=== PATIENT | female | born 1945 | race African-American/Black ===

== ENCOUNTER 2017-05-14 20:17 | Inpatient (IN) | payer MEDICARE, MEDICAID ==
[~2017-05-14] VITALS: Ht 167.6 cm; Wt 109.8 kg
[~2017-05-14 20:17] MED LIST: ALBU6.7H3; AMLO10TA80 PO; ASPI81TA35 PO; CITA10TA9 PO; DOCU-150 PO; FLUT12AE7 PO; GABA-529 PO; LOT10 PO; NIFE90TA47 PO; NITR0.4T SL; OMEP20CA10 PO; TRAM50TA94 PO
[2017-05-14] MEDS ORDERED: MORPHINE SULFATE 4 MG/ML CPJ (NOT FOR IM USE) IV STA (20:53)
[2017-05-14] MEDS ORDERED: ONDANSETRON HCL 4MG/2ML VIAL IV STA (20:53)
[2017-05-14] MEDS ORDERED: SODIUM CHLORIDE 0.9% 500 ML IV ONE (20:54)
[2017-05-14 21:37] LABS: BASOPHILS % 0.8 % (0.0-2.0); EOSINOPHILS % 0.2 % (0.0-5.0); HEMATOCRIT. 41.2 % (36.0-48.0); HEMOGLOBIN. 13.1 g/dL (12.0-16.0); LYMPHOCYTES % 17.5 % (20.0-50.0); MEAN CORPUSCULAR HEMOGLOBIN 23.1 pg (28.0-32.0); MEAN CORPUSCULAR VOLUME 72.5 fL (81.0-99.0); MEAN PLATELET VOLUME 8.3 fl (7.4-10.4); MONOCYTES % 8.3 % (2.0-8.0); NEUTROPHILS % 73.2 % (40.0-76.0); PLATELET 313 x1000/uL (130-400); RED BLOOD CELL COUNT 5.69 mill/uL (4.2-5.4); RED CELL DISTRIBUTION WIDTH 15.9 % (11.6-14.6)
[2017-05-14 21:39] LABS: PROTHROMBIN TIME 10.4 sec
[2017-05-14 21:49] LABS: CARBON DIOXIDE 26 mEq/L (21-32); CHLORIDE 106 mEq/L (98-107); TROPONIN I 0.02 ng/mL (0.00-0.04)
[2017-05-14 22:35] LABS: CLARITY URINE CLEAR (CLEAR); COLOR URINE YELLOW (YELLOW); KETONES URINE NEGATIVE (NEGATIVE); LEUKOCYTE ESTERASE URINE NEGATIVE (NEGATIVE); NITRITE URINE NEGATIVE (NEGATIVE); OCCULT BLOOD URINE NEGATIVE (NEGATIVE); PH URINE 6.5 (4.5-8.0); PROTEIN URINE TRACE (NEGATIVE); SPECIFIC GRAVITY URINE 1.015 (1.005-1.030)
[2017-05-15] MEDS ORDERED: AMLODIPINE 5MG TABLET PO NR (05:30)
[2017-05-15] MEDS ORDERED: MORPHINE SULFATE 4 MG/ML CPJ (NOT FOR IM USE) IV NR (05:30)
[2017-05-15] MEDS ORDERED: ACETAMINOPHEN 325MG TABLET PO PRN (08:00)
[2017-05-15] MEDS ORDERED: CLONIDINE 0.1MG TABLET PO PRN (08:00)
[2017-05-15] MEDS ORDERED: ENOXAPARIN 40MG/0.4ML SYR SUBCUT SCH (08:00)
[2017-05-15] MEDS ORDERED: HYDROCODONE/ACETAMINOPHEN 5/325MG TABLET PO PRN (08:00)
[2017-05-15] MEDS ORDERED: ONDANSETRON HCL 4MG/2ML VIAL IV PRN (08:00)
[2017-05-15] MEDS ORDERED: DOCUSATE SODIUM 100MG CAPSULE PO PRN (08:00)
[2017-05-15] MEDS ORDERED: ACETAMINOPHEN 650MG/20.3ML UDC GT PRN (08:00)
[2017-05-15] MEDS ORDERED: NA PHOS,M-B/NA PHOS,DI-BA ENEMA 118ML PR PRN (08:00)
[2017-05-15] MEDS ORDERED: IPRATROPIUM/ALBUTEROL 0.5-3(2.5)MG/3ML NEB INH PRN (08:00)
[2017-05-15] MEDS ORDERED: ACETAMINOPHEN 650MG SUPP PR PRN (08:00)
[2017-05-15] MEDS ORDERED: MAGNESIUM/ALUMINUM HYDROXIDE/SIMETHICONE 30ML UDC PO PRN (08:00)
[2017-05-15] MEDS ORDERED: DIPHENHYDRAMINE 50MG/ML VIAL IV PRN (08:00)
[2017-05-15] MEDS ORDERED: NICOTINE 14MG PATCH TD NR (08:45)
[2017-05-15] MEDS ORDERED: ENOXAPARIN 30MG/0.3ML SYR SUBCUT SCH (09:00)
[2017-05-15] MEDS ORDERED: IOHEXOL-300 100 ML BOTTLE ONE (10:48)
[2017-05-15] MEDS ORDERED: SODIUM CHLORIDE 0.9% 10ML VIAL ONE (10:48)
[2017-05-15 11:32] LABS: BASOPHILS % 0.7 % (0.0-2.0); EOSINOPHILS % 1.6 % (0.0-5.0); HEMATOCRIT. 37.8 % (36.0-48.0); HEMOGLOBIN. 11.9 g/dL (12.0-16.0); MEAN CORPUSCULAR HEMOGLOBIN 23.2 pg (28.0-32.0); MEAN CORPUSCULAR VOLUME 73.7 fL (81.0-99.0); MONOCYTES % 9.7 % (2.0-8.0); PLATELET 264 x1000/uL (130-400); RED BLOOD CELL COUNT 5.13 mill/uL (4.2-5.4); RED CELL DISTRIBUTION WIDTH 15.7 % (11.6-14.6)
[2017-05-15 11:54] LABS: CARBON DIOXIDE 28 mEq/L (21-32); CHLORIDE 109 mEq/L (98-107)
[2017-05-15] MEDS: SODIUM CHLORIDE 0.9% INJ 3ML FLUSH IVF SCH ×2 (13:17→21:05)
[2017-05-15 15:52] LABS: CLARITY URINE CLEAR (CLEAR); COLOR URINE YELLOW (YELLOW); KETONES URINE NEGATIVE (NEGATIVE); LEUKOCYTE ESTERASE URINE NEGATIVE (NEGATIVE); NITRITE URINE POSITIVE (NEGATIVE); OCCULT BLOOD URINE TRACE (NEGATIVE); PH URINE 6.5 (4.5-8.0); PROTEIN URINE TRACE (NEGATIVE)
[2017-05-15] MEDS ORDERED: POTASSIUM CHLORIDE 20MEQ TABLET SR PO NR (16:02)
[2017-05-15 16:14] LABS: *AMPHETAMINES SCREEN URINE NEGATIVE (NEGATIVE); *BARBITURATES SCREEN URINE NEGATIVE (NEGATIVE); *BENZODIAZEPINES SCREEN URINE NEGATIVE (NEGATIVE); *COCAINE SCREEN URINE NEGATIVE (NEGATIVE); CANNABINOID URINE SCREEN NEGATIVE (NEGATIVE); METHADONE URINE SCREEN NEGATIVE (NEGATIVE); OPIATES URINE SCREEN PRESUMTIVE POSITIVE (NEGATIVE); PHENCYCLIDINE URINE SCREEN NEGATIVE (NEGATIVE)
[2017-05-15] MEDS ORDERED: OXYB5TAB11 PO (16:46)
[2017-05-15] MEDS ORDERED: TIOT18CA3 IH (16:46)
[2017-05-15] MEDS ORDERED: FERR-63 PO (16:46)
[2017-05-15] MEDS ORDERED: ATOR10TA69 PO (16:46)
[2017-05-15 17:03] LABS: T4 FREE 1.36 ng/dL (0.76-1.46); TROPONIN I 0.03 ng/mL (0.00-0.04)
[2017-05-15] MEDS: ENOXAPARIN 120MG/0.8ML SYR SUBCUT SCH (21:06)
[2017-05-16 01:59] LABS: CREATINE KINASE 220 IU/L (26-192); CREATINE KINASE MB FRACTION 2.5 ng/mL (0.5-3.6); TROPONIN I < 0.02 ng/mL (0.00-0.04)
[2017-05-16] MEDS: SODIUM CHLORIDE 0.9% INJ 3ML FLUSH IVF SCH ×2 (06:36→13:21)
[2017-05-16 06:53] LABS: BASOPHILS % 0.8 % (0.0-2.0); EOSINOPHILS % 3.9 % (0.0-5.0); HEMATOCRIT. 38.8 % (36.0-48.0); HEMOGLOBIN. 12.2 g/dL (12.0-16.0); MEAN CORPUSCULAR HEMOGLOBIN 23.1 pg (28.0-32.0); MEAN CORPUSCULAR VOLUME 73.3 fL (81.0-99.0); MEAN PLATELET VOLUME 8.2 fl (7.4-10.4); MONOCYTES % 8.7 % (2.0-8.0); NEUTROPHILS % 56.6 % (40.0-76.0); PLATELET 270 x1000/uL (130-400); RED BLOOD CELL COUNT 5.29 mill/uL (4.2-5.4)
[2017-05-16 07:14] LABS: CHLORIDE 107 mEq/L (98-107)
[2017-05-16 07:45] LABS: CARBON DIOXIDE 26 mEq/L (21-32); HDL CHOLESTEROL 45 mg/dL (40-59); LDL CHOLESTEROL 47 mg/dL (5-100)
[2017-05-16] MEDS: NICOTINE 14MG PATCH TD SCH (08:37)
[2017-05-16] MEDS: ENOXAPARIN 120MG/0.8ML SYR SUBCUT SCH ×2 (08:38→20:53)
[2017-05-16] MEDS: GUAIFENESIN 200MG/10ML SUGAR FREE UDC PO PRN ×2 (14:06→19:12)
[2017-05-16] MEDS ORDERED: REGADENOSON 0.4 MG/5 ML IV ONE (16:15)
[2017-05-17] MEDS: SODIUM CHLORIDE 0.9% INJ 3ML FLUSH IVF SCH ×2 (06:39→13:16)
[2017-05-17] MEDS ORDERED: REGADENOSON 0.4 MG/5 ML IV ONE (08:19)
[2017-05-17] MEDS: ENOXAPARIN 120MG/0.8ML SYR SUBCUT SCH (10:16)
[2017-05-17] MEDS: NICOTINE 14MG PATCH TD SCH (10:17)
[2017-05-17 11:57] VITALS: BP 136/78
== END 2017-05-17 14:50 | disposition home or self-care (01) | DRG 391 ==
LOC: ER 20:17 → 8WST 05-15 01:06 → ENRESERV 05-15 01:34
PROVIDERS: ADMIT Family Medicine; ATTEND Family Medicine
DX: K21.9 Gastro-esophageal reflux disease without esophagitis (principal); E43 Unspecified severe protein-calorie malnutrition; I11.0 Hypertensive heart disease with heart failure; I50.9 Heart failure, unspecified; Z86.74 Personal history of sudden cardiac arrest; E66.9 Obesity, unspecified; J45.909 Unspecified asthma, uncomplicated; K57.90 Diverticulosis of intestine, part unspecified, without perforation or abscess without bleeding; Z88.0 Allergy status to penicillin; Z68.39 Body mass index [BMI] 39.0-39.9, adult; Z90.710 Acquired absence of both cervix and uterus; Z79.899 Other long term (current) drug therapy
CPT/HCPCS: 36415; 71010; 74177; 78452; 80053; 80061; 80305; 81001; 82550; 82553; 83036; 83690; 83880; 84439; 84443; 84484; 85025; 85379; 85610; 93005; 93017; 93306; 93970; 96374; 96375; 99285; A4216; A9500; J1650; J2270; J2405; J2785; J7030; Q9967

== ENCOUNTER 2018-01-23 18:24 | Emergency (ER) | payer MEDICARE, MEDICAID ==
[~2018-01-23] VITALS: Ht 177.8 cm; Wt 101.0 kg
[~2018-01-23 18:24] MED LIST changes: +ATOR10TA69 PO; +FERR-63 PO; +OXYB5TAB11 PO; +TIOT18CA3 IH
[2018-01-23] MEDS ORDERED: ONDANSETRON HCL 4MG/2ML VIAL IV STA (22:13)
[2018-01-23] MEDS ORDERED: MORPHINE SULFATE 4 MG/ML CPJ (NOT FOR IM USE) IV STA (22:13)
[2018-01-23] MEDS ORDERED: SODIUM CHLORIDE 0.9% 1,000 ML IV ONE (22:13)
[2018-01-23 22:59] LABS: CLARITY URINE TURBID (CLEAR); COLOR URINE YELLOW (YELLOW); KETONES URINE TRACE (NEGATIVE); LEUKOCYTE ESTERASE URINE 2+ (NEGATIVE); NITRITE URINE NEGATIVE (NEGATIVE); OCCULT BLOOD URINE TRACE (NEGATIVE); PH URINE 6.5 (4.5-8.0); PROTEIN URINE 2+ (NEGATIVE); SPECIFIC GRAVITY URINE 1.021 (1.005-1.030); UROBILINOGEN URINE 0.2 E.U./dL (0.2-1.0)
[2018-01-23 23:08] LABS: *AMPHETAMINES SCREEN URINE NEGATIVE (NEGATIVE); *BARBITURATES SCREEN URINE NEGATIVE (NEGATIVE); *BENZODIAZEPINES SCREEN URINE NEGATIVE (NEGATIVE); *COCAINE SCREEN URINE NEGATIVE (NEGATIVE); CANNABINOID URINE SCREEN NEGATIVE (NEGATIVE); METHADONE URINE SCREEN NEGATIVE (NEGATIVE); OPIATES URINE SCREEN NEGATIVE (NEGATIVE); PHENCYCLIDINE URINE SCREEN NEGATIVE (NEGATIVE)
[2018-01-23] MEDS ORDERED: LEVOFLOXACIN 750MG PREMIX 150 ML IV NR (23:15)
[2018-01-23 23:57] LABS: BASOPHILS % 0.5 % (0.0-2.0); EOSINOPHILS % 0.9 % (0.0-5.0); HEMATOCRIT. 44.5 % (36.0-48.0); LYMPHOCYTES % 19.9 % (20.0-50.0); MEAN CORPUSCULAR HEMOGLOBIN 22.6 pg (28.0-32.0); MEAN PLATELET VOLUME 7.7 fl (7.4-10.4); MONOCYTES % 8.1 % (2.0-8.0); NEUTROPHILS % 70.6 % (40.0-76.0); PLATELET 362 x1000/uL (130-400); RED BLOOD CELL COUNT 6.19 mill/uL (4.2-5.4); RED CELL DISTRIBUTION WIDTH 15.8 % (11.6-14.6)
[2018-01-24 00:05] LABS: PROTHROMBIN TIME 10.5 sec (9.4-11.6)
[2018-01-24 00:11] LABS: CHLORIDE 103 mEq/L (98-107)
[2018-01-24 00:20] LABS: ETHANOL BLOOD < 10 mg/dL; TROPONIN I < 0.02 ng/mL (0.00-0.04)
[2018-01-24] MEDS ORDERED: ONDANSETRON 4MG ODT PO ONE (02:00)
[2018-01-24 02:12] VITALS: BP 152/75
== END 2018-01-24 02:35 | disposition home or self-care (01) ==
LOC: ER 18:52 → CANBEDREQ 01-24 16:19
DX: R10.0 Acute abdomen (principal); N39.0 Urinary tract infection, site not specified; K57.30 Diverticulosis of large intestine without perforation or abscess without bleeding; K44.9 Diaphragmatic hernia without obstruction or gangrene; I11.0 Hypertensive heart disease with heart failure; I50.9 Heart failure, unspecified; I44.0 Atrioventricular block, first degree; J45.909 Unspecified asthma, uncomplicated; Z88.0 Allergy status to penicillin; Z79.82 Long term (current) use of aspirin; Z79.899 Other long term (current) drug therapy
CPT/HCPCS: 36415; 71045; 74176; 80053; 80305; 81003; 83605; 83690; 83880; 84484; 85025; 85610; 87040; 87077; 87086; 87186; 93005; 96361; 96365; 96366; 96375; 99285; G0482; J1956; J2270; J2405; J7030; Q0162